=== PATIENT | female | born 1950 | race Caucasian/White ===

== ENCOUNTER → 2017-03-20 | Outpatient (CLI) | payer MEDICARE, OTHER ==
[~2017-03-20] MED LIST: METHACHOLINE KIT (J7674) INH ONE
--- NOTE | 2017-03-20 10:06 | PFTRPT ---
Tech: Cassandra STANFORD RRT Age: 66 Sex: Female Race: Height: 61.00 Inches Weight: 171.00 Lbs BSA: 1.77 Diagnosis: R05 METHACHOLINE CHALLENGE REPORT ORDERING PROVIDER: EILEEN Mccrary DATE OF SERVICE: 03/20/17 INTERPRETATION: The study was of excellent technical quality. Under protocol, methacholine was administered. Even after a maximal dose of 25 mg (188.875 CDUs ), no provocation dose was achieved. IMPRESSION: Negative methacholine challenge study. MTDD
== END ==
LOC: M CARPUL 09:01
PROVIDERS: ATTEND Nurse Practitioner Adult Health
DX: R05 Cough (principal)
CPT/HCPCS: 94070; 95070; J7674

== ENCOUNTER → 2017-07-26 | Outpatient (CLI) | payer MEDICARE | LOC: M WHC 09:04 | DX: Z01.419 Encounter for gynecological examination (general) (routine) without abnormal findings (principal); Z12.31 Encounter for screening mammogram for malignant neoplasm of breast (principal); Z85.9 Personal history of malignant neoplasm, unspecified; Z78.0 Asymptomatic menopausal state; Z12.12 Encounter for screening for malignant neoplasm of rectum | CPT/HCPCS: 77067 ==

== ENCOUNTER 2017-12-19 13:55 | Inpatient (IN) | payer MEDICARE ==
[2017-12-19] MEDS: ONDANSETRON 4MG/2ML VIAL (J2405) IV (14:53)
[2017-12-19] MEDS: MORPHINE 4 MG/ML 1ML VIAL/SYRINGE (J2270) IV ×2 (14:58→16:10)
[2017-12-19] MEDS: NS 1,000 ML IV (15:08)
[2017-12-19 16:41] LABS: HEMATOCRIT 33.5 % (36.0-47.0); HEMOGLOBIN 11.1 g/dl (12.0-15.5); MEAN CORPUSCULAR HEMOGLOBIN 31.7 pg (27.0-33.0); MEAN CORPUSCULAR HGB CONC 33.1 g/dl (32.0-36.5); MEAN CORPUSCULAR VOLUME 95.7 fl (80.0-96.0); PLATELET COUNT, AUTOMATED 322 10^3/uL (150-450); RED CELL DISTRIBUTION WIDTH 11.9 % (11.5-14.5); WHITE BLOOD COUNT 17.4 10^3/uL (4.0-10.0)
[2017-12-19 16:51] LABS: IONIZED CALCIUM 4.6 MG/DL (4.5-5.3)
[2017-12-19 17:12] LABS: ANION GAP 8 MEQ/L (8-16); BLOOD UREA NITROGEN 24 MG/DL (7-18); CALCIUM LEVEL 9.4 MG/DL (8.8-10.2); CARBON DIOXIDE LEVEL 28 MEQ/L (21-32); CHLORIDE LEVEL 103 MEQ/L (98-107); CREATININE FOR GFR 0.74 MG/DL (0.55-1.30); GLOMERULAR FILTRATION RATE > 60.0 (>45); GLUCOSE, FASTING 129 MG/DL (70-100); POTASSIUM SERUM 3.9 MEQ/L (3.5-5.1); SODIUM LEVEL 139 MEQ/L (136-145)
[2017-12-19 17:26] LABS: INR 0.99; PROTHROMBIN TIME 13.2 SECONDS (12.1-14.4)
[2017-12-19 17:27] LABS: PARTIAL THROMBOPLASTIN TIME 30.7 SECONDS (25.4-37.6)
[2017-12-19] MEDS ORDERED: GLUCAGON FOR INJ 1 MG VIAL (J1610) SC (17:45)
[2017-12-19] MEDS ORDERED: GLUCOSE 4 GM CHEW TABLET PO (17:45)
[2017-12-19] MEDS ORDERED: DEXTROSE 50% 50 ML SYRINGE IV (17:45)
[2017-12-19] MEDS ORDERED: MIDAZOLAM INJ 2 MG/2 ML VIAL (J2250) As Ordered (18:17)
[2017-12-19] MEDS ORDERED: ONDANSETRON 4MG/2ML VIAL (J2405) As Ordered ×2 (18:17→19:40)
[2017-12-19] MEDS ORDERED: PROPOFOL 200 MG/20 ML VIAL As Ordered (18:17)
[2017-12-19] MEDS ORDERED: LIDOCAINE 2% INJ 100 MG/5 ML SDV (FOR ANES.) As Ordered (18:17)
[2017-12-19] MEDS ORDERED: fentaNYL 100 MCG/2 ML INJECTION (J3010) As Ordered ×2 (18:17→18:20)
[2017-12-19] MEDS: ceFAZolin 2 GM/D5W 50 ML IV BAG (J0690 PER 500MG) As Ordered ×2 (19:15→22:45)
[2017-12-19] MEDS ORDERED: PHENYLephrine HCL 500 MCG/5 ML (100MCG/ML) SYRINGE (J2370) As Ordered (19:17)
[2017-12-19] MEDS ORDERED: VASOPRESSIN INJ 20 UNITS/ML VIAL As Ordered (19:17)
[2017-12-19] MEDS ORDERED: ePHEDrine SULFATE 25 MG/5 ML(5MG/ML) SYRINGE As Ordered (19:17)
[2017-12-19] MEDS: ceFAZolin 1GM INJ (J0690 PER 500MG) As Ordered (19:36)
[2017-12-19] MEDS ORDERED: HYDROmorphone HCL 2 MG/ML 1ML VIAL (J1170) As Ordered (19:47)
[2017-12-19 20:07] LABS: BEDSIDE GLUCOSE 160 MG/DL (80-115)
[2017-12-19] MEDS: HumaLOG INSULIN (NovoLOG) PER UNIT SC (21:00)
[2017-12-19] MEDS: CYANOCOBALAMIN 500 MCG TAB PO (21:00)
[2017-12-19] MEDS: SENOKOT S TAB PO (21:00)
[2017-12-19 22:48] LABS: BEDSIDE GLUCOSE 220 MG/DL (80-115)
[2017-12-19] MEDS: HumuLIN R (REGULAR) INSULIN (NovoLIN R) **100U/ML** PER UNIT As Ordered (22:50)
[2017-12-19 23:30] LABS: BEDSIDE GLUCOSE 170 MG/DL (80-115)
[2017-12-19] MEDS: LR 1,000 ML IV (23:45)
[2017-12-19] MEDS ORDERED: fentaNYL 100 MCG/2 ML INJECTION (J3010) IV (23:45)
[2017-12-19] MEDS ORDERED: PERCOCET 5MG/325MG TAB PO (23:45)
[2017-12-19] MEDS ORDERED: ONDANSETRON 4MG/2ML VIAL (J2405) IV ×2 (23:45)
[2017-12-19] MEDS ORDERED: METOCLOPRAMIDE INJ 10MG/2ML VIAL (J2765) IV (23:45)
[2017-12-19] MEDS ORDERED: [UNRECOGNIZED DRUG - REMARK] XX (23:45)
[2017-12-19] MEDS ORDERED: MEPERIDINE INJ 25 MG/ML VIAL (J2175) IV (23:45)
[2017-12-20 00:54] LABS: HEMATOCRIT 30.3 % (36.0-47.0)
[2017-12-20] MEDS: LR 1,000 ML IV ×2 (01:51→09:45)
[2017-12-20] MEDS: NORCO, ANEXSIA 5/325MG TABLET (HYDROcodone/ACETAMINOPHEN) PO ×4 (01:56→19:15)
[2017-12-20] MEDS: MORPHINE 4 MG/ML 1ML VIAL/SYRINGE (J2270) IV ×2 (03:24→16:17)
[2017-12-20] MEDS: ceFAZolin SOD 1 GM in D5W MINI-BAG PLUS 50 ML IV ×2 (05:24→13:04)
[2017-12-20] MEDS: LEVOTHYROXINE 150MCG TABLET (0.15MG) PO (05:24)
[2017-12-20] MEDS: LEVOTHYROXINE 25MCG TABLET (0.025MG) PO (05:24)
[2017-12-20] MEDS ORDERED: LORATADINE 10 MG TAB PO (06:00)
[2017-12-20 06:01] LABS: HEMATOCRIT 27.6 % (36.0-47.0); MEAN CORPUSCULAR HEMOGLOBIN 32.1 pg (27.0-33.0); MEAN CORPUSCULAR HGB CONC 32.6 g/dl (32.0-36.5); MEAN CORPUSCULAR VOLUME 98.6 fl (80.0-96.0); PLATELET COUNT, AUTOMATED 296 10^3/uL (150-450); WHITE BLOOD COUNT 11.3 10^3/uL (4.0-10.0)
[2017-12-20 06:31] LABS: INR 1.11; PROTHROMBIN TIME 14.5 SECONDS (12.1-14.4)
[2017-12-20 06:54] LABS: ANION GAP 12 MEQ/L (8-16); BLOOD UREA NITROGEN 24 MG/DL (7-18); CALCIUM LEVEL 7.9 MG/DL (8.8-10.2); CARBON DIOXIDE LEVEL 23 MEQ/L (21-32); CHLORIDE LEVEL 107 MEQ/L (98-107); CREATININE FOR GFR 1.18 MG/DL (0.55-1.30); GLOMERULAR FILTRATION RATE 48.3 (>45); GLUCOSE, FASTING 135 MG/DL (70-100); POTASSIUM SERUM 4.3 MEQ/L (3.5-5.1); SODIUM LEVEL 142 MEQ/L (136-145)
[2017-12-20] MEDS: HumaLOG INSULIN (NovoLOG) PER UNIT SC ×4 (08:35→21:00)
[2017-12-20] MEDS: MULTIVITAMINS/MINERALS THERAP 1 TAB PO (08:36)
[2017-12-20] MEDS: SENOKOT S TAB PO ×2 (08:36→19:54)
[2017-12-20] MEDS: FOLIC ACID 1 MG TAB PO (08:37)
[2017-12-20] MEDS: IRBESARTAN 150 MG TAB PO (08:37)
[2017-12-20] MEDS: PRAVASTATIN 20 MG TAB PO (08:38)
[2017-12-20] MEDS: hydroCHLOROthiazide 12.5 MG CAPSULE PO (08:39)
[2017-12-20] MEDS: THIAMINE 100 MG TAB PO (08:42)
[2017-12-20] MEDS ORDERED: PILL CRUSHER/CUTTER 1 EACH XX (08:45)
[2017-12-20] MEDS: FLUTICASONE PROP 0.05% NASAL SPRAY 16 GM (FLONASE) (09:59)
[2017-12-20 11:45] LABS: BEDSIDE GLUCOSE 144 MG/DL (80-115)
[2017-12-20 12:52] LABS: HEMATOCRIT 28.2 % (36.0-47.0); HEMOGLOBIN 9.4 g/dl (12.0-15.5)
[2017-12-20 16:42] LABS: BEDSIDE GLUCOSE 130 MG/DL (80-115)
[2017-12-20] MEDS: RIVAROXABAN 10 MG TAB (XARELTO) PO (17:50)
[2017-12-20 18:05] LABS: HEMATOCRIT 26.7 % (36.0-47.0); HEMOGLOBIN 8.5 g/dl (12.0-15.5)
[2017-12-20] MEDS: CYANOCOBALAMIN 500 MCG TAB PO (19:54)
[2017-12-20 21:08] LABS: BEDSIDE GLUCOSE 156 MG/DL (80-115)
[2017-12-20 23:56] LABS: HEMATOCRIT 24.5 % (36.0-47.0)
[2017-12-21 00:40] LABS: IMMEDIATE SPIN CROSSMATCH 1 2
[2017-12-21] MEDS: MORPHINE 4 MG/ML 1ML VIAL/SYRINGE (J2270) IV (00:55)
[2017-12-21] MEDS: LEVOTHYROXINE 25MCG TABLET (0.025MG) PO (05:40)
[2017-12-21] MEDS: LEVOTHYROXINE 150MCG TABLET (0.15MG) PO (05:40)
[2017-12-21 05:53] LABS: HEMATOCRIT 32.2 % (36.0-47.0); MEAN CORPUSCULAR HEMOGLOBIN 31.5 pg (27.0-33.0); MEAN CORPUSCULAR HGB CONC 33.5 g/dl (32.0-36.5); MEAN CORPUSCULAR VOLUME 93.9 fl (80.0-96.0); PLATELET COUNT, AUTOMATED 233 10^3/uL (150-450); RED BLOOD COUNT 3.43 10^6/uL (4.00-5.40); RED CELL DISTRIBUTION WIDTH 14.4 % (11.5-14.5); WHITE BLOOD COUNT 12.6 10^3/uL (4.0-10.0)
[2017-12-21 05:55] LABS: HEMOGLOBIN 10.8 g/dl (12.0-15.5)
[2017-12-21 05:57] LABS: PROTHROMBIN TIME 20.3 SECONDS (12.1-14.4)
[2017-12-21 06:04] LABS: ANION GAP 7 MEQ/L (8-16); BLOOD UREA NITROGEN 28 MG/DL (7-18); CALCIUM LEVEL 8.6 MG/DL (8.8-10.2); CARBON DIOXIDE LEVEL 27 MEQ/L (21-32); CHLORIDE LEVEL 102 MEQ/L (98-107); CREATININE FOR GFR 0.98 MG/DL (0.55-1.30); GLOMERULAR FILTRATION RATE 59.9 (>45); GLUCOSE, FASTING 157 MG/DL (70-100); POTASSIUM SERUM 4.2 MEQ/L (3.5-5.1); SODIUM LEVEL 136 MEQ/L (136-145)
[2017-12-21] MEDS ORDERED: SLF 3 ML SYR IV (08:15)
[2017-12-21] MEDS: HumaLOG INSULIN (NovoLOG) PER UNIT SC ×4 (08:44→21:00)
[2017-12-21] MEDS: MULTIVITAMINS/MINERALS THERAP 1 TAB PO (08:45)
[2017-12-21] MEDS: FLUTICASONE PROP 0.05% NASAL SPRAY 16 GM (FLONASE) (08:45)
[2017-12-21] MEDS: IRBESARTAN 150 MG TAB PO (08:47)
[2017-12-21] MEDS: FOLIC ACID 1 MG TAB PO (08:47)
[2017-12-21] MEDS: SENOKOT S TAB PO ×2 (08:48→20:23)
[2017-12-21] MEDS: PRAVASTATIN 20 MG TAB PO (08:48)
[2017-12-21] MEDS: THIAMINE 100 MG TAB PO (08:49)
[2017-12-21] MEDS: hydroCHLOROthiazide 12.5 MG CAPSULE PO (08:50)
[2017-12-21] MEDS: NORCO, ANEXSIA 5/325MG TABLET (HYDROcodone/ACETAMINOPHEN) PO ×3 (08:52→20:23)
[2017-12-21 12:13] LABS: BEDSIDE GLUCOSE 143 MG/DL (80-115)
[2017-12-21] MEDS: SLF 3 ML SYR IV ×2 (12:58→22:00)
[2017-12-21 17:16] LABS: BEDSIDE GLUCOSE 143 MG/DL (80-115)
[2017-12-21] MEDS: RIVAROXABAN 10 MG TAB (XARELTO) PO (18:20)
[2017-12-21] MEDS: CYANOCOBALAMIN 500 MCG TAB PO (20:24)
[2017-12-21 20:38] LABS: BEDSIDE GLUCOSE 143 MG/DL (80-115)
[2017-12-22] MEDS: LEVOTHYROXINE 25MCG TABLET (0.025MG) PO (05:11)
[2017-12-22] MEDS: SLF 3 ML SYR IV ×3 (05:12→22:36)
[2017-12-22] MEDS: LEVOTHYROXINE 150MCG TABLET (0.15MG) PO (05:12)
[2017-12-22] MEDS: NORCO, ANEXSIA 5/325MG TABLET (HYDROcodone/ACETAMINOPHEN) PO (05:12)
[2017-12-22 06:52] LABS: HEMATOCRIT 30.2 % (36.0-47.0); HEMOGLOBIN 10.2 g/dl (12.0-15.5); MEAN CORPUSCULAR HEMOGLOBIN 31.2 pg (27.0-33.0); MEAN CORPUSCULAR HGB CONC 33.8 g/dl (32.0-36.5); MEAN CORPUSCULAR VOLUME 92.4 fl (80.0-96.0); PLATELET COUNT, AUTOMATED 258 10^3/uL (150-450); RED BLOOD COUNT 3.27 10^6/uL (4.00-5.40); RED CELL DISTRIBUTION WIDTH 14.3 % (11.5-14.5); WHITE BLOOD COUNT 14.2 10^3/uL (4.0-10.0)
[2017-12-22 07:08] LABS: INR 1.37
[2017-12-22 07:16] LABS: ANION GAP 10 MEQ/L (8-16); BLOOD UREA NITROGEN 20 MG/DL (7-18); CALCIUM LEVEL 8.9 MG/DL (8.8-10.2); CARBON DIOXIDE LEVEL 27 MEQ/L (21-32); CHLORIDE LEVEL 99 MEQ/L (98-107); CREATININE FOR GFR 0.61 MG/DL (0.55-1.30); GLOMERULAR FILTRATION RATE > 60.0 (>45); GLUCOSE, FASTING 122 MG/DL (70-100); SODIUM LEVEL 136 MEQ/L (136-145)
[2017-12-22] MEDS: HumaLOG INSULIN (NovoLOG) PER UNIT SC ×4 (07:52→20:09)
[2017-12-22] MEDS: MULTIVITAMINS/MINERALS THERAP 1 TAB PO (07:53)
[2017-12-22] MEDS: PRAVASTATIN 20 MG TAB PO (07:53)
[2017-12-22] MEDS: hydroCHLOROthiazide 12.5 MG CAPSULE PO (07:53)
[2017-12-22] MEDS: SENOKOT S TAB PO ×2 (07:53→20:08)
[2017-12-22] MEDS: IRBESARTAN 150 MG TAB PO (07:54)
[2017-12-22] MEDS: FOLIC ACID 1 MG TAB PO (07:54)
[2017-12-22] MEDS: FLUTICASONE PROP 0.05% NASAL SPRAY 16 GM (FLONASE) (07:55)
[2017-12-22] MEDS: THIAMINE 100 MG TAB PO (07:57)
[2017-12-22 08:55] LABS: BASO % 0.2 % (0.0-1.0); EOS # 0.1 10^3/uL (0.0-0.50); IMMATURE GRANULOCYTE # 0.1 10^3/uL (0-0); IMMATURE GRANULOCYTE % 0.7 % (0-3.0); LYMPH # 1.8 10^3/uL (1.5-4.5); LYMPH % 12.6 % (24.0-44.0); MONO # 1.3 10^3/uL (0.0-0.8); NEUTROPHILS # 10.9 10^3/uL (1.8-7.7); NEUTROPHILS % 76.5 % (36.0-66.0)
[2017-12-22 11:20] LABS: BEDSIDE GLUCOSE 133 MG/DL (80-115)
[2017-12-22 11:27] LABS: APPEARANCE, URINE HAZY (CLEAR); BACTERIA, URINE AUTO NEGATIVE (NEGATIVE); BILIRUBIN, URINE AUTO NEGATIVE (NEGATIVE); BLOOD, URINE BLOOD NEGATIVE (NEGATIVE); COLOR, URINE YELLOW (YELLOW); GLUCOSE, URINE (UA) AUTO NEGATIVE (NEGATIVE); KETONE, URINE AUTO 1+ mg/dL (NEGATIVE); LEUKOCYTE ESTERASE, URINE AUTO NEGATIVE (NEGATIVE); NITRITE, URINE AUTO NEGATIVE (NEGATIVE); PROTEIN, URINE AUTO NEGATIVE (NEGATIVE); RBC, URINE AUTO 2 /HPF (0-3); SPECIFIC GRAVITY URINE AUTO 1.013 (1.002-1.035); SQUAMOUS EPITHELIAL CELL UR AU 2 /HPF (0-6); UROBILINOGEN, URINE AUTO 0.2 mg/dL (0.0-2.0); WBC, URINE AUTO 2 /HPF (0-3)
[2017-12-22] MEDS: ACETAMINOPHEN TAB 650MG DOSE (2X325MG) PO ×3 (11:55→22:36)
[2017-12-22 16:50] LABS: BEDSIDE GLUCOSE 118 MG/DL (80-115)
[2017-12-22] MEDS: RIVAROXABAN 10 MG TAB (XARELTO) PO (17:44)
[2017-12-22 20:05] LABS: BEDSIDE GLUCOSE 105 MG/DL (80-115)
[2017-12-22] MEDS: CYANOCOBALAMIN 500 MCG TAB PO (20:08)
[2017-12-23] MEDS: LEVOTHYROXINE 150MCG TABLET (0.15MG) PO (05:13)
[2017-12-23] MEDS: LEVOTHYROXINE 25MCG TABLET (0.025MG) PO (05:13)
[2017-12-23] MEDS: SLF 3 ML SYR IV ×3 (05:14→22:00)
[2017-12-23] MEDS: ACETAMINOPHEN TAB 650MG DOSE (2X325MG) PO ×4 (05:16→19:56)
[2017-12-23 06:19] LABS: HEMATOCRIT 32.3 % (36.0-47.0); HEMOGLOBIN 10.9 g/dl (12.0-15.5); MEAN CORPUSCULAR HEMOGLOBIN 31.1 pg (27.0-33.0); MEAN CORPUSCULAR HGB CONC 33.7 g/dl (32.0-36.5); MEAN CORPUSCULAR VOLUME 92.3 fl (80.0-96.0); PLATELET COUNT, AUTOMATED 274 10^3/uL (150-450); RED CELL DISTRIBUTION WIDTH 13.6 % (11.5-14.5); WHITE BLOOD COUNT 13.5 10^3/uL (4.0-10.0)
[2017-12-23 06:29] LABS: INR 1.27; PROTHROMBIN TIME 16.1 SECONDS (12.1-14.4)
[2017-12-23 06:45] LABS: ANION GAP 13 MEQ/L (8-16); BLOOD UREA NITROGEN 23 MG/DL (7-18); CALCIUM LEVEL 9.2 MG/DL (8.8-10.2); CARBON DIOXIDE LEVEL 27 MEQ/L (21-32); CHLORIDE LEVEL 96 MEQ/L (98-107); CREATININE FOR GFR 0.56 MG/DL (0.55-1.30); GLOMERULAR FILTRATION RATE > 60.0 (>45); GLUCOSE, FASTING 93 MG/DL (70-100); POTASSIUM SERUM 4.2 MEQ/L (3.5-5.1); SODIUM LEVEL 136 MEQ/L (136-145)
[2017-12-23] MEDS: HumaLOG INSULIN (NovoLOG) PER UNIT SC ×4 (07:30→21:00)
[2017-12-23] MEDS: FOLIC ACID 1 MG TAB PO (09:01)
[2017-12-23] MEDS: MULTIVITAMINS/MINERALS THERAP 1 TAB PO (09:01)
[2017-12-23] MEDS: THIAMINE 100 MG TAB PO (09:01)
[2017-12-23] MEDS: IRBESARTAN 150 MG TAB PO (09:02)
[2017-12-23] MEDS: PRAVASTATIN 20 MG TAB PO (09:02)
[2017-12-23] MEDS: FLUTICASONE PROP 0.05% NASAL SPRAY 16 GM (FLONASE) (09:02)
[2017-12-23] MEDS: SENOKOT S TAB PO ×2 (09:02→19:57)
[2017-12-23] MEDS: hydroCHLOROthiazide 12.5 MG CAPSULE PO (09:02)
[2017-12-23 17:02] LABS: BEDSIDE GLUCOSE 140 MG/DL (80-115)
[2017-12-23 17:02] LABS: BEDSIDE GLUCOSE 136 MG/DL (80-115)
[2017-12-23] MEDS: RIVAROXABAN 10 MG TAB (XARELTO) PO (17:15)
[2017-12-23] MEDS: CYANOCOBALAMIN 500 MCG TAB PO (19:57)
[2017-12-23 20:07] LABS: BEDSIDE GLUCOSE 145 MG/DL (80-115)
[2017-12-24] MEDS: ACETAMINOPHEN TAB 650MG DOSE (2X325MG) PO ×4 (02:40→20:41)
[2017-12-24] MEDS: LEVOTHYROXINE 150MCG TABLET (0.15MG) PO (05:23)
[2017-12-24] MEDS: SLF 3 ML SYR IV ×3 (05:23→20:41)
[2017-12-24] MEDS: LEVOTHYROXINE 25MCG TABLET (0.025MG) PO (05:23)
[2017-12-24 07:32] LABS: HEMATOCRIT 31.5 % (36.0-47.0); HEMOGLOBIN 10.8 g/dl (12.0-15.5); MEAN CORPUSCULAR HEMOGLOBIN 31.9 pg (27.0-33.0); MEAN CORPUSCULAR HGB CONC 34.3 g/dl (32.0-36.5); MEAN CORPUSCULAR VOLUME 92.9 fl (80.0-96.0); PLATELET COUNT, AUTOMATED 333 10^3/uL (150-450); RED BLOOD COUNT 3.39 10^6/uL (4.00-5.40); RED CELL DISTRIBUTION WIDTH 13.5 % (11.5-14.5); WHITE BLOOD COUNT 11.6 10^3/uL (4.0-10.0)
[2017-12-24 08:05] LABS: ANION GAP 14 MEQ/L (8-16); BLOOD UREA NITROGEN 23 MG/DL (7-18); CARBON DIOXIDE LEVEL 28 MEQ/L (21-32); CHLORIDE LEVEL 97 MEQ/L (98-107); CREATININE FOR GFR 0.47 MG/DL (0.55-1.30); GLOMERULAR FILTRATION RATE > 60.0 (>45); GLUCOSE, FASTING 116 MG/DL (70-100); SODIUM LEVEL 139 MEQ/L (136-145)
[2017-12-24] MEDS: THIAMINE 100 MG TAB PO (09:04)
[2017-12-24] MEDS: FOLIC ACID 1 MG TAB PO (09:04)
[2017-12-24] MEDS: SENOKOT S TAB PO ×2 (09:04→20:41)
[2017-12-24] MEDS: MULTIVITAMINS/MINERALS THERAP 1 TAB PO (09:04)
[2017-12-24] MEDS: PRAVASTATIN 20 MG TAB PO (09:04)
[2017-12-24] MEDS: hydroCHLOROthiazide 12.5 MG CAPSULE PO (09:05)
[2017-12-24] MEDS: IRBESARTAN 150 MG TAB PO (09:05)
[2017-12-24] MEDS: FLUTICASONE PROP 0.05% NASAL SPRAY 16 GM (FLONASE) (09:05)
[2017-12-24] MEDS: HumaLOG INSULIN (NovoLOG) PER UNIT SC ×4 (09:06→21:00)
[2017-12-24 11:34] LABS: BEDSIDE GLUCOSE 119 MG/DL (80-115)
[2017-12-24] MEDS: CYCLOBENZAPRINE 10 MG TAB PO (14:53)
[2017-12-24 18:08] LABS: BEDSIDE GLUCOSE 131 MG/DL (80-115)
[2017-12-24] MEDS: RIVAROXABAN 10 MG TAB (XARELTO) PO (18:10)
[2017-12-24] MEDS ORDERED: ISOVUE-370 76% 100ML VIAL (Q9967) As Ordered (18:21)
[2017-12-24] MEDS: CYANOCOBALAMIN 500 MCG TAB PO (20:40)
[2017-12-24] MEDS ORDERED: BACLOFEN 10 MG TAB PO (21:00)
[2017-12-24 21:23] LABS: BEDSIDE GLUCOSE 150 MG/DL (80-115)
[2017-12-25] MEDS: ACETAMINOPHEN TAB 650MG DOSE (2X325MG) PO ×2 (02:44→09:36)
[2017-12-25] MEDS: LEVOTHYROXINE 150MCG TABLET (0.15MG) PO (05:52)
[2017-12-25] MEDS: SLF 3 ML SYR IV (05:52)
[2017-12-25] MEDS: LEVOTHYROXINE 25MCG TABLET (0.025MG) PO (05:52)
[2017-12-25 06:41] LABS: HEMATOCRIT 33.4 % (36.0-47.0); HEMOGLOBIN 11.2 g/dl (12.0-15.5); MEAN CORPUSCULAR HEMOGLOBIN 31.1 pg (27.0-33.0); MEAN CORPUSCULAR HGB CONC 33.5 g/dl (32.0-36.5); MEAN CORPUSCULAR VOLUME 92.8 fl (80.0-96.0); PLATELET COUNT, AUTOMATED 388 10^3/uL (150-450); RED CELL DISTRIBUTION WIDTH 13.3 % (11.5-14.5); WHITE BLOOD COUNT 12.3 10^3/uL (4.0-10.0)
[2017-12-25 06:56] LABS: BEDSIDE GLUCOSE 124 MG/DL (80-115)
[2017-12-25 07:02] LABS: ANION GAP 11 MEQ/L (8-16); BLOOD UREA NITROGEN 23 MG/DL (7-18); CALCIUM LEVEL 8.9 MG/DL (8.8-10.2); CARBON DIOXIDE LEVEL 29 MEQ/L (21-32); CHLORIDE LEVEL 95 MEQ/L (98-107); CREATININE FOR GFR 0.64 MG/DL (0.55-1.30); GLOMERULAR FILTRATION RATE > 60.0 (>45); GLUCOSE, FASTING 111 MG/DL (70-100); POTASSIUM SERUM 3.6 MEQ/L (3.5-5.1); SODIUM LEVEL 135 MEQ/L (136-145)
[2017-12-25] MEDS: SENOKOT S TAB PO (08:17)
[2017-12-25] MEDS: FOLIC ACID 1 MG TAB PO (08:17)
[2017-12-25] MEDS: MULTIVITAMINS/MINERALS THERAP 1 TAB PO (08:17)
[2017-12-25] MEDS: hydroCHLOROthiazide 12.5 MG CAPSULE PO (08:17)
[2017-12-25] MEDS: PRAVASTATIN 20 MG TAB PO (08:17)
[2017-12-25] MEDS: IRBESARTAN 150 MG TAB PO (08:17)
[2017-12-25] MEDS: FLUTICASONE PROP 0.05% NASAL SPRAY 16 GM (FLONASE) (08:18)
[2017-12-25] MEDS: HumaLOG INSULIN (NovoLOG) PER UNIT SC (08:18)
[2017-12-25] MEDS: THIAMINE 100 MG TAB PO (08:18)
[2017-12-25] MEDS ORDERED: MAGNESIUM CITRATE 300 ML BTL PO (09:15)
[2017-12-25] MEDS: FLEET ENEMA PR (09:59)
== END 2017-12-25 12:05 | DRG 481 ==
LOC: M PCU 12-20 00:52 → M MS5PR 12-21 16:01 → M ED 13:55 → M ED INP 17:28
PROC: 0QSB04Z Reposition Right Lower Femur with Internal Fixation Device, Open Approach (ICD-10-PCS; principal; 2017-12-19 17:00)
PROC: 30233N1 Transfusion of Nonautologous Red Blood Cells into Peripheral Vein, Percutaneous Approach (ICD-10-PCS; 2017-12-19 18:39)
DX: S72.24XA Nondisplaced subtrochanteric fracture of right femur, initial encounter for closed fracture (principal); J98.11 Atelectasis; E11.9 Type 2 diabetes mellitus without complications; F10.10 Alcohol abuse, uncomplicated; J30.9 Allergic rhinitis, unspecified; E03.9 Hypothyroidism, unspecified; E78.5 Hyperlipidemia, unspecified; I10 Essential (primary) hypertension; D72.829 Elevated white blood cell count, unspecified; W18.30XA Fall on same level, unspecified, initial encounter; Y92.009 Unspecified place in unspecified non-institutional (private) residence as the place of occurrence of the external cause; Z79.899 Other long term (current) drug therapy

== ENCOUNTER → 2018-01-01 | Outpatient (REF) ==
[2018-01-01 09:55] LABS: HEMOGLOBIN 11.3 g/dl (12.0-15.5); MEAN CORPUSCULAR HEMOGLOBIN 31.5 pg (27.0-33.0); MEAN CORPUSCULAR HGB CONC 33.2 g/dl (32.0-36.5); MEAN CORPUSCULAR VOLUME 94.7 fl (80.0-96.0); PLATELET COUNT, AUTOMATED 688 10^3/uL (150-450); RED BLOOD COUNT 3.59 10^6/uL (4.00-5.40); RED CELL DISTRIBUTION WIDTH 14.3 % (11.5-14.5); WHITE BLOOD COUNT 11.7 10^3/uL (4.0-10.0)
[2018-01-01 10:36] LABS: ANION GAP 11 MEQ/L (8-16); BLOOD UREA NITROGEN 17 MG/DL (7-18); CALCIUM LEVEL 9.5 MG/DL (8.8-10.2); CARBON DIOXIDE LEVEL 29 MEQ/L (21-32); CHLORIDE LEVEL 96 MEQ/L (98-107); CREATININE FOR GFR 0.72 MG/DL (0.55-1.30); GLOMERULAR FILTRATION RATE > 60.0 (>45); GLUCOSE, FASTING 109 MG/DL (70-100); POTASSIUM SERUM 4.5 MEQ/L (3.5-5.1); SODIUM LEVEL 136 MEQ/L (136-145)
== END ==
DX: I10 Essential (primary) hypertension (principal)

== ENCOUNTER → 2018-01-09 | Outpatient (REF) ==
[2018-01-09 10:25] LABS: HEMATOCRIT 37.2 % (36.0-47.0); HEMOGLOBIN 12.3 g/dl (12.0-15.5); MEAN CORPUSCULAR HEMOGLOBIN 31.9 pg (27.0-33.0); MEAN CORPUSCULAR HGB CONC 33.1 g/dl (32.0-36.5); MEAN CORPUSCULAR VOLUME 96.4 fl (80.0-96.0); PLATELET COUNT, AUTOMATED 622 10^3/uL (150-450); RED BLOOD COUNT 3.86 10^6/uL (4.00-5.40); WHITE BLOOD COUNT 8.6 10^3/uL (4.0-10.0)
[2018-01-09 10:56] LABS: ANION GAP 11 MEQ/L (8-16); BLOOD UREA NITROGEN 16 MG/DL (7-18); CALCIUM LEVEL 9.9 MG/DL (8.8-10.2); CARBON DIOXIDE LEVEL 27 MEQ/L (21-32); CHLORIDE LEVEL 96 MEQ/L (98-107); CREATININE FOR GFR 0.72 MG/DL (0.55-1.30); GLOMERULAR FILTRATION RATE > 60.0 (>45); GLUCOSE, FASTING 198 MG/DL (70-100); POTASSIUM SERUM 4.1 MEQ/L (3.5-5.1); SODIUM LEVEL 134 MEQ/L (136-145)
== END ==
DX: I10 Essential (primary) hypertension (principal)

== ENCOUNTER → 2018-08-09 | Outpatient (CLI) | payer MEDICARE ==
[~2018-08-09] MED LIST changes: +BACL10TA2; +BIOT10TA2 PO; +BIOT1CAP2 PO; +CLAR10CA3 PO; +CYCL10TA PO; +Docusate Sod/Senna PO; +FLUTISP; +FOLI1TAB11 PO; +IBUP-359 PO; +IRBE150T14 PO; +IRBESARTAN-HCTZ; +LORA10TA3 PO; +METF500T13; -METHACHOLINE KIT (J7674) INH ONE; +PERC5TAB12 PO; +PRAV40TA2 PO; +SYNT175T2 PO; +THIA100TA PO; +VITA10002 PO; +VITA100T51 PO; +VITMTA PO; +XARE10TA PO
--- NOTE | 2018-08-09 13:33 | REPMRS ---
Patient History The patient states she had a clinical breast exam in 08/2018. Patient is postmenopausal and has history of other cancer at age 65. No known family history of cancer. Benign excisional biopsy of the left breast, 1997. No Hormone Replacement Therapy 3D TOMOSYNTHESIS WAS PERFORMED. Digital Woman Screen Mammo: August 09, 2018 - Exam #: [id number] Bilateral CC and MLO view(s) were taken. Technologist: Chela Marcelo, Technologist Prior study comparison: July 26, 2017, digital woman screen mammo performed at [facility]. June 08, 2015, right breast diagnostic unilateral mammo, performed at [facility]. FINDINGS: There are scattered fibroglandular densities. There has been no change in the appearance of the mammogram from the prior studies. There is a mild amount of residual fibroglandular tissue which is fairly symmetric. There is no interval development of dominant mass, architectural distortion, or clustered microcalcification suggestive of malignancy. Assessment: BI-RADS/ACR category 1 mammogram. Negative Mammogram. Recommendation Routine screening mammogram in 1 year (for women over age 40). This mammogram was interpreted with the aid of an FDA-approved computer-aided dectection system. Electronically Signed By: Albert Mcdonald MD 08/09/18 [id number]
--- NOTE | 2018-08-13 13:52 | DEXA ---
AP SPINE L1 - L4 1.580 3.1 4.8 LT FEMUR TOTAL 0.830 -1.4 0.1 LT NECK 0.729 -2.2 -0.5 RT FEMUR TOTAL Right hip fracture with rubs. RT NECK Right hip fracture with rubs. TOTAL BODY TOTAL OTHER COMMENTS: Normal bone densitometry of the spine. There is low bone density of the left hip. The increased density of the spine does not represent a significant change. The decreased density of the left hip does represent a significant change. The density of the spine has increased 10.7% since the initial exam on 10/04/2001. The spine density has increased 1.9% since the most recent exam on 05/15/2013. The density of the left hip has decreased 15.7% since the initial exam on 10/04/2001. The density of the left hip has decreased 7.6% since the most recent exam on 05/15/2013. Right hip replacement. FOLLOW-UP: Recommendation for the next bone density exam: 2 years. MIKE
== END ==
LOC: M WHC 10:55
PROVIDERS: ATTEND Nurse Practitioner Family
DX: Z12.31 Encounter for screening mammogram for malignant neoplasm of breast (principal); M85.80 Other specified disorders of bone density and structure, unspecified site; Z78.0 Asymptomatic menopausal state; Z85.89 Personal history of malignant neoplasm of other organs and systems; Z86.018 Personal history of other benign neoplasm
CPT/HCPCS: 77063; 77067; 77080; G0463

== ENCOUNTER → 2019-11-06 | Outpatient (CLI) | payer MEDICARE ==
[~2019-11-06] MED LIST changes: +CYAN100049 PO; +CYCL-707 PO; -CYCL10TA PO; -VITA10002 PO
--- NOTE | 2019-11-30 09:44 | REPMRS ---
Patient History The patient states she had a clinical breast exam in October 2019. Patient is postmenopausal and has history of other cancer at age 65. No known family history of cancer. Benign excisional biopsy of the left breast, 1997. No Hormone Replacement Therapy Digital Woman Screen Mammo: November 06, 2019 - Exam #: [id number] Bilateral CC and MLO view(s) were taken. Technologist: Tia Paz, Technologist Prior study comparison: August 09, 2018, bilateral digital woman screen mammo performed at [facility]. July 26, 2017, digital woman screen mammo performed at [facility]. June 03, 2015, digital woman screen mammo performed at [facility]. FINDINGS: There are scattered fibroglandular densities. There has been no change in the appearance of the mammogram from the prior studies. There is a mild amount of scattered fibroglandular density which is fairly symmetric. There is no interval development of dominant mass, architectural distortion, or grouped microcalcification suggestive of malignancy. 3-D tomosynthesis shows no additional findings. Report was delayed due to a protracted network disruption experienced by this facility. Assessment: BI-RADS/ACR category 1 mammogram. Negative Mammogram. Recommendation Routine screening mammogram of both breasts in 1 year (for women over age 40). This patient's Lifetime Breast Cancer Risk is estimated at 3.4 %. This mammogram was interpreted with the aid of an FDA-approved computer-aided dectection system. Electronically Signed By: Reid Gaston MD 11/30/19 0943
== END ==
LOC: M WHC 14:34
PROVIDERS: ATTEND Nurse Practitioner Women's Health
DX: Z01.419 Encounter for gynecological examination (general) (routine) without abnormal findings (principal); Z12.31 Encounter for screening mammogram for malignant neoplasm of breast; Z78.0 Asymptomatic menopausal state; Z85.89 Personal history of malignant neoplasm of other organs and systems; Z86.018 Personal history of other benign neoplasm
CPT/HCPCS: 77063; 77067; G0101

== ENCOUNTER → 2020-11-11 | Outpatient (CLI) | payer MEDICARE ==
--- NOTE | 2020-11-11 13:22 | REP ---
INDICATION: FABI SCR MAMMO. COMPARISON: 11/06/2019 as well as other prior exams. TECHNIQUE: MLO and CC views of bilateral breasts performed with tomosynthesis. FINDINGS: Mild scattered fibroglandular tissue is present bilaterally. There is a smoothly marginated 3 mm nodular density in the medial left breast, not visualized on the MLO view. Otherwise no new mass or architectural distortion is seen. No clustered microcalcifications are seen. The Volpara volumetric breast density pattern is B. IMPRESSION: BIRADS/ACR category 0, incomplete. There is new smoothly marginated 3 mm nodular density medial left breast somewhat inferiorly. This is not seen in the MLO projection. Recommend spot compression views, left mL tomogram images and ultrasound to further evaluate. This is of doubtful significance. This patient's Tyrer-Cuzick lifetime breast cancer risk assessment score is 3.2%. This mammogram was interpreted with the aid of an FDA-approved computer-aided detection system. The patient states she had a clinical breast exam in November 2020. The patient letter being requested is M0. RECOMMENDATION: Recommend spot compression views and ultrasound left breast. <Electronically signed by Albert Mcdonald > 11/11/20 [id number]
== END ==
LOC: M WHC 10:55
PROVIDERS: ATTEND Nurse Practitioner Women's Health
DX: Z01.419 Encounter for gynecological examination (general) (routine) without abnormal findings (principal); Z12.31 Encounter for screening mammogram for malignant neoplasm of breast; N63.20 Unspecified lump in the left breast, unspecified quadrant
CPT/HCPCS: 77063; 77067; G0101

== ENCOUNTER → 2020-12-09 | Outpatient (CLI) | payer MEDICARE ==
--- NOTE | 2020-12-09 12:37 | REP ---
INDICATION: LEFT BREAST ADDVIEWS. COMPARISON: Comparison mammography November 11, 2020, November 06, 2019, and August 09, 2018. TECHNIQUE: Magnified focal spot-compression CC, true mL, and MLO projection images were obtained. 3D tomography is deployed in the mediolateral projection and rolled craniocaudal views are included. Targeted left breast sonography of the medial left breast is performed. This mammogram was interpreted with the aid of an FDA-approved computer-aided detection system. FINDINGS: Screening study showed a 3 mm divya density in the medial aspect of the left breast on the craniocaudal view. Today's diagnostic craniocaudal images confirm this well-circumscribed 3 mm opacity in the medial left breast. This could not be visualized however on the orthogonal plane images or on mediolateral 3D tomography. Rolled views confirm it is is in approximately the central breast position. No other significant mammographic finding. The Volpara volumetric breast density pattern is b. Targeted ultrasound: Targeted left breast sonography is performed in the medial aspect. At the 10 o'clock position, 3 cm from the nipple, there is a 0.3 x 0.3 x 0.2 cm cyst. This is felt to account for the mammographic opacity. Has a benign appearance and a low shear wave elastography number, 24.8 K PA. IMPRESSION: BIRADS/ACR category 2 benign left breast mammographic and sonographic findings. 3 mm cyst confirmed. This patient's Tyrer-Cuzick lifetime breast cancer risk assessment score is 3.2%. RECOMMENDATION: Repeat screening mammography recommended 1 year (for women over 40). The patient letter being requested is M1. <Electronically signed by Reid Gaston > 12/09/20 [id number]
== END ==
LOC: M WHC 11:01
PROVIDERS: ATTEND Nurse Practitioner Women's Health
DX: R92.2 Inconclusive mammogram (principal); N63.22 Unspecified lump in the left breast, upper inner quadrant
CPT/HCPCS: 76642; 77065; G0279

== ENCOUNTER → 2021-02-03 | Outpatient (CLI) | payer MEDICARE ==
--- NOTE | 2021-02-03 14:43 | REP ---
INDICATION: SHORTNESS OF BREATH AND COUGH. COMPARISON: Multiple the latest 12/09/2019 TECHNIQUE: PA and lateral FINDINGS: The cardiomediastinal silhouette is unchanged. The heart is not enlarged. Minimal right basilar opacities may have developed since the last exam. The pleural angles remain sharp. Lung dunaway are otherwise clear and stable. The osseous structures are stable and intact. IMPRESSION: Possible new but minimal right basilar opacities. Subsegmental atelectatic change is suspected. A developing pneumonia cannot be completely ruled out. Follow-up is suggested. <Electronically signed by Agapito Feliciano > 02/03/21 [id number]
== END ==
LOC: M WUC 13:53
PROVIDERS: ATTEND Physician Assistant
DX: R06.02 Shortness of breath (principal); R05.3 Chronic cough

== ENCOUNTER → 2021-09-29 | Outpatient (REF) | payer MEDICARE ==
[2021-09-29 16:42] LABS: CREATININE FOR GFR 0.97 MG/DL (0.55-1.30); GLOMERULAR FILTRATION RATE 59.9 (>39)
== END ==
LOC: M WUC 15:43
PROVIDERS: ATTEND Psychiatry & Neurology Neurology
DX: I10 Essential (primary) hypertension (principal)

== ENCOUNTER → 2021-12-15 | Outpatient (CLI) | payer MEDICARE | LOC: M WUC 14:46 | PROVIDERS: ATTEND Physician Assistant | DX: R05.3 Chronic cough (principal); R06.02 Shortness of breath; J90 Pleural effusion, not elsewhere classified ==

== ENCOUNTER → 2022-02-07 | Outpatient (CLI) | payer MEDICARE ==
[2022-02-07 13:24] LABS: ALBUMIN 3.7 GM/DL (3.2-5.2); ALT/SGPT 24 U/L (12-78); BILIRUBIN,TOTAL 0.4 MG/DL (0.2-1.0); BLOOD UREA NITROGEN 32 MG/DL (7-18); CALCIUM LEVEL 10.3 MG/DL (8.8-10.2); CARBON DIOXIDE LEVEL 32 MEQ/L (21-32); CHLORIDE LEVEL 101 MEQ/L (98-107); CHOLESTEROL LEVEL 173 MG/DL (<200); CHOLESTEROL RISK RATIO 1.901 (<5); CREATININE FOR GFR 0.93 MG/DL (0.55-1.30); GLOMERULAR FILTRATION RATE > 60.0 (>39); GLUCOSE, FASTING 130 MG/DL (70-100); HDL CHOLESTEROL 91 MG/DL (>40); LDL CHOLESTEROL 62 MG/DL (<100); NON-HDL-C 82 MG/DL; POTASSIUM SERUM 4.7 MEQ/L (3.5-5.1); SODIUM LEVEL 139 MEQ/L (136-145); TOTAL PROTEIN 7.2 GM/DL (6.4-8.2); TRIGLYCERIDES LEVEL 102 MG/DL (<150)
== END ==
LOC: M WUC 09:44
PROVIDERS: ATTEND Physician Assistant
DX: E78.5 Hyperlipidemia, unspecified (principal); E11.40 Type 2 diabetes mellitus with diabetic neuropathy, unspecified; I10 Essential (primary) hypertension

== ENCOUNTER → 2022-03-08 | Outpatient (CLI) | payer MEDICARE | LOC: M WHC 11:45 | PROVIDERS: ATTEND Nurse Practitioner Family | DX: Z12.31 Encounter for screening mammogram for malignant neoplasm of breast (principal) ==

== ENCOUNTER → 2022-05-15 | Outpatient (CLI) | payer MEDICARE ==
[2022-05-15 13:41] LABS: HEMOGLOBIN A1c 6.6 % (4.0-6.0)
== END ==
LOC: M WUC 10:38
PROVIDERS: ATTEND Physician Assistant
DX: E11.40 Type 2 diabetes mellitus with diabetic neuropathy, unspecified (principal)

== ENCOUNTER → 2022-05-31 | Outpatient (CLI) | payer MEDICARE | LOC: M PLAIMG 13:39 | PROVIDERS: ATTEND Physician Assistant | DX: M51.36 Other intervertebral disc degeneration, lumbar region (principal) ==

== ENCOUNTER → 2022-08-08 | Outpatient (CLI) | payer MEDICARE ==
[~2022-08-08] MED LIST changes: +FLUT50SP17; -FLUTISP
[2022-08-08 17:05] LABS: BASO % 0.4 % (0.0-1.0); EOS # 0.3 10^3/uL (0.0-0.5); HEMATOCRIT 38.3 % (36.0-47.0); HEMOGLOBIN 11.8 g/dl (12.0-15.5); LYMPH # 1.8 10^3/uL (1.5-5.0); LYMPH % 18.8 % (24.0-44.0); MEAN CORPUSCULAR HEMOGLOBIN 29.6 pg (27.0-33.0); MEAN CORPUSCULAR HGB CONC 30.8 g/dl (32.0-36.5); MEAN CORPUSCULAR VOLUME 96.2 fl (80.0-96.0); MONO # 0.6 10^3/uL (0.0-0.8); MONO % 6.5 % (2.0-8.0); NEUTROPHILS # 6.7 10^3/uL (1.5-8.5); NEUTROPHILS % 70.6 % (36.0-66.0); PLATELET COUNT, AUTOMATED 496 10^3/uL (150-450); RED BLOOD COUNT 3.98 10^6/uL (4.00-5.40); WHITE BLOOD COUNT 9.5 10^3/uL (4.0-10.0)
[2022-08-08 17:23] LABS: ALBUMIN 3.6 G/DL (3.2-5.2); ALKALINE PHOSPHATASE 68 U/L (46-116); ALT/SGPT < 9 U/L (7.0-40); AST/SGOT 10 U/L (<34); BILIRUBIN,TOTAL 0.4 MG/DL (0.3-1.2); BLOOD UREA NITROGEN 25 MG/DL (9-23); CARBON DIOXIDE LEVEL 29 MMOL/L (20-31); CHLORIDE LEVEL 101 MMOL/L (98-107); CREATININE FOR GFR 0.76 MG/DL (0.55-1.30); GLOMERULAR FILTRATION RATE > 60.0 (>39); GLUCOSE, FASTING 112 MG/DL (74-106); POTASSIUM SERUM 4.2 MMOL/L (3.5-5.1); SODIUM LEVEL 139 MMOL/L (136-145); TOTAL PROTEIN 7.2 G/DL (5.7-8.2)
[2022-08-08 17:49] LABS: HEMOGLOBIN A1c 6.7 % (4.0-6.0)
== END ==
LOC: M WUC 11:07
PROVIDERS: ATTEND Physician Assistant
DX: E11.40 Type 2 diabetes mellitus with diabetic neuropathy, unspecified (principal); I10 Essential (primary) hypertension

== ENCOUNTER → 2022-08-08 | Outpatient (CLI) | payer MEDICARE ==
[2022-08-08 17:27] LABS: BLOOD UREA NITROGEN 25 MG/DL (9-23); CREATININE FOR GFR 0.76 MG/DL (0.55-1.30); GLOMERULAR FILTRATION RATE > 60.0 (>39)
== END ==
LOC: M WUC 11:11
DX: I10 Essential (primary) hypertension (principal)

== ENCOUNTER → 2023-03-14 | Outpatient (CLI) | payer MEDICARE ==
[~2023-03-14] MED LIST changes: -FLUT50SP17; +FLUTISP
== END ==
LOC: M WHC 14:11
PROVIDERS: ATTEND Nurse Practitioner Family
DX: Z12.31 Encounter for screening mammogram for malignant neoplasm of breast (principal)

== ENCOUNTER 2023-07-05 11:23 | Day surgery (SDC) | payer MEDICARE ==
[~2023-07-05] VITALS: Ht 157.5 cm; Wt 79.4 kg
[~2023-07-05 11:23] MED LIST changes: +BREO1INH3 INH; +CULT10CA4 PO; +ECOT81TA5 PO; +FURO20TA2 PO; +GABA-284 PO; +IBAN150T6 PO; +JANU100T PO; +KP F1200 PO; +LEVE250T5 PO
[2023-07-05] MEDS ORDERED: propofoL 200 MG/20 ML VIAL As Ordered ONE (12:33)
[2023-07-05] MEDS ORDERED: LIDOCAINE 2% 100MG/5ML SDV (FOR ANES.) As Ordered ONE (12:34)
[2023-07-05 12:58] VITALS: TEMP 97
[2023-07-05 13:14] VITALS: BP 146/64; O2SAT 96
== END 2023-07-05 13:38 | disposition home or self-care (01) ==
LOC: M OPP 11:23
PROVIDERS: ATTEND Surgery
DX: D12.6 Benign neoplasm of colon, unspecified (principal); K64.2 Third degree hemorrhoids; K57.30 Diverticulosis of large intestine without perforation or abscess without bleeding; R19.5 Other fecal abnormalities; Z87.891 Personal history of nicotine dependence; I10 Essential (primary) hypertension; E11.9 Type 2 diabetes mellitus without complications; E03.9 Hypothyroidism, unspecified; Z79.2 Long term (current) use of antibiotics; Z79.52 Long term (current) use of systemic steroids; Z79.83 Long term (current) use of bisphosphonates; Z79.890 Hormone replacement therapy; Z79.891 Long term (current) use of opiate analgesic; Z79.899 Other long term (current) drug therapy

== ENCOUNTER 2023-07-07 16:03 | Inpatient (IN) | payer MEDICARE ==
[~2023-07-07] VITALS: Ht 157.5 cm; Wt 83.3 kg
[2023-07-07] MEDS: NS 1,000 ML IV ONE (16:55)
[2023-07-07 17:06] LABS: BASO % 0.3 % (0.0-1.0); EOS % 3.5 % (0.0-3.0); HEMATOCRIT 33.8 % (36.0-47.0); LYMPH % 13.4 % (24.0-44.0); MEAN CORPUSCULAR HEMOGLOBIN 31.5 pg (27.0-33.0); MEAN CORPUSCULAR HGB CONC 32.5 g/dl (32.0-36.5); MEAN CORPUSCULAR VOLUME 96.8 fl (80.0-96.0); MONO % 7.6 % (2.0-8.0); NEUTROPHILS % 74.7 % (36.0-66.0); PLATELET COUNT, AUTOMATED 287 10^3/uL (150-450); RED BLOOD COUNT 3.49 10^6/uL (4.00-5.40); WHITE BLOOD COUNT 15.2 10^3/uL (4.0-10.0)
[2023-07-07 17:07] LABS: EOS # 0.5 10^3/uL (0.0-0.5); MONO # 1.2 10^3/uL (0.0-0.8); NEUTROPHILS # 11.4 10^3/uL (1.5-8.5)
[2023-07-07 17:29] LABS: LIPASE 31 U/L (12-53)
[2023-07-07 17:31] LABS: ALBUMIN 3.2 G/DL (3.2-5.2); ALKALINE PHOSPHATASE 76 U/L (46-116); ALT/SGPT 15 U/L (7.0-40); AST/SGOT 11 U/L (<34); BILIRUBIN,DIRECT < 0.1 MG/DL (<0.4); BILIRUBIN,TOTAL 0.2 MG/DL (0.3-1.2); BLOOD UREA NITROGEN 57 MG/DL (9-23); CALCIUM LEVEL 8.8 MG/DL (8.3-10.6); CARBON DIOXIDE LEVEL 23 MMOL/L (20-31); CHLORIDE LEVEL 94 MMOL/L (98-107); CREATININE FOR GFR 4.61 MG/DL (0.55-1.30); GLOMERULAR FILTRATION RATE 9.9 (>39); GLUCOSE, FASTING 110 MG/DL (74-106); POTASSIUM SERUM 4.3 MMOL/L (3.5-5.1); SODIUM LEVEL 131 MMOL/L (136-145); TOTAL PROTEIN 6.5 G/DL (5.7-8.2)
[2023-07-07] MEDS ORDERED: ALBUTEROL SULFATE 2.5MG/0.5ML INH NEB SOLN NEB PRN (19:45)
[2023-07-07] MEDS ORDERED: IPRATROPIUM 0.5MG/ALBUTEROL 2.5MG INH SOL UD 3ML (DUONEB) NEB PRN (19:45)
[2023-07-07] MEDS ORDERED: HOME MED LIST COMPLETE! XX SCH (19:50)
[2023-07-07] MEDS: SODIUM CHLORIDE 0.9% 1000ML IV SCH (19:58)
[2023-07-07] MEDS ORDERED: GLUCAGON INJ 1MG VIAL SC PRN (20:00)
[2023-07-07] MEDS ORDERED: GLUCOSE 4GM CHEW TABLET PO PRN (20:00)
[2023-07-07] MEDS ORDERED: DEXTROSE 50% 50ML SYRINGE IV PRN (20:00)
[2023-07-07 20:10] VITALS: BP 142/64; TEMP 96.9; O2SAT 95
[2023-07-07] MEDS: INSULIN LISPRO (NovoLOG) PER UNIT SC SCH (20:54)
[2023-07-07] MEDS: HEPARIN SOD (PORCINE) 5000UNITS/ML 1ML VIAL/SYRINGE SC SCH (20:54)
[2023-07-07] MEDS: ACETAMINOPHEN TAB 650MG DOSE (2X325MG) PO PRN (20:55)
[2023-07-07 21:00] VITALS: O2SAT 93
[2023-07-07 21:25] LABS: IONIZED CALCIUM 4.3 MG/DL (4.5-5.3)
[2023-07-07 21:45] LABS: INR 1.04; PARTIAL THROMBOPLASTIN TIME 34.4 SECONDS (24.8-34.2); PROTHROMBIN TIME 13.3 SECONDS (12.5-14.5)
[2023-07-07 21:50] LABS: MAGNESIUM LEVEL 1.4 MG/DL (1.8-2.4)
[2023-07-07 22:00] VITALS: O2SAT 88
[2023-07-07] MEDS: NS 1,000 ML IV SCH (22:14)
[2023-07-07 23:00] VITALS: O2SAT 95
[2023-07-07] MEDS: MAGNESIUM OXIDE 400MG TAB (MAG-OX) PO SCH (23:15)
[2023-07-08] VITALS (14 sets, daily range): BP systolic 117–156; BP diastolic 58–67; TEMP 96.8–98.8; O2SAT 93–98
[2023-07-08] MEDS: NS 1,000 ML IV ONE (04:20)
[2023-07-08 05:37] LABS: BASO % 0.2 % (0.0-1.0); EOS % 4.4 % (0.0-3.0); HEMATOCRIT 33.5 % (36.0-47.0); HEMOGLOBIN 10.9 g/dl (12.0-15.5); LYMPH % 12.1 % (24.0-44.0); MEAN CORPUSCULAR HEMOGLOBIN 31.6 pg (27.0-33.0); MEAN CORPUSCULAR HGB CONC 32.5 g/dl (32.0-36.5); MEAN CORPUSCULAR VOLUME 97.1 fl (80.0-96.0); MONO % 7.2 % (2.0-8.0); NEUTROPHILS % 75.4 % (36.0-66.0); PLATELET COUNT, AUTOMATED 293 10^3/uL (150-450); RED BLOOD COUNT 3.45 10^6/uL (4.00-5.40)
[2023-07-08 05:38] LABS: EOS # 0.5 10^3/uL (0.0-0.5); LYMPH # 1.5 10^3/uL (1.5-5.0); MONO # 0.9 10^3/uL (0.0-0.8); NEUTROPHILS # 9.1 10^3/uL (1.5-8.5)
[2023-07-08 05:55] LABS: ALBUMIN 2.7 G/DL (3.2-5.2); CALCIUM LEVEL 7.9 MG/DL (8.3-10.6); CREATININE FOR GFR 5.27 MG/DL (0.55-1.30); GLOMERULAR FILTRATION RATE 8.5 (>39); PHOSPHORUS LEVEL 6.8 MG/DL (2.4-5.1); POTASSIUM SERUM 4.4 MMOL/L (3.5-5.1)
[2023-07-08 06:06] LABS: ALBUMIN 2.5 G/DL (3.2-5.2); BILIRUBIN,TOTAL 0.2 MG/DL (0.3-1.2); CALCIUM LEVEL 8.2 MG/DL (8.3-10.6); CREATININE FOR GFR 5.38 MG/DL (0.55-1.30); GLOMERULAR FILTRATION RATE 8.3 (>39); MAGNESIUM LEVEL 1.6 MG/DL (1.8-2.4); POTASSIUM SERUM 4.3 MMOL/L (3.5-5.1); TOTAL PROTEIN 5.8 G/DL (5.7-8.2)
[2023-07-08] MEDS: INSULIN LISPRO (NovoLOG) PER UNIT SC SCH (08:26)
[2023-07-08] MEDS: (RENVELA) SEVELAMER **CARBONate** 800 MG TAB PO SCH (12:22)
[2023-07-09] VITALS (19 sets, daily range): BP systolic 128–139; BP diastolic 58–65; TEMP 97.7–100; O2SAT 82–99
[2023-07-09 05:38] LABS: HEMATOCRIT 30.2 % (36.0-47.0); HEMOGLOBIN 9.8 g/dl (12.0-15.5); LYMPH % 10.7 % (24.0-44.0); MEAN CORPUSCULAR HEMOGLOBIN 31.4 pg (27.0-33.0); MEAN CORPUSCULAR HGB CONC 32.5 g/dl (32.0-36.5); MEAN CORPUSCULAR VOLUME 96.8 fl (80.0-96.0); MONO % 10.3 % (2.0-8.0); NEUTROPHILS % 75.1 % (36.0-66.0); PLATELET COUNT, AUTOMATED 266 10^3/uL (150-450); RED BLOOD COUNT 3.12 10^6/uL (4.00-5.40); WHITE BLOOD COUNT 10.5 10^3/uL (4.0-10.0)
[2023-07-09 05:39] LABS: BASO % 0.2 % (0.0-1.0); EOS # 0.3 10^3/uL (0.0-0.5); EOS % 3.1 % (0.0-3.0); LYMPH # 1.1 10^3/uL (1.5-5.0); MONO # 1.1 10^3/uL (0.0-0.8); NEUTROPHILS # 7.9 10^3/uL (1.5-8.5)
[2023-07-09 06:01] LABS: ALBUMIN 2.4 G/DL (3.2-5.2); CALCIUM LEVEL 8.5 MG/DL (8.3-10.6); CREATININE FOR GFR 6.88 MG/DL (0.55-1.30); GLOMERULAR FILTRATION RATE 6.2 (>39); PHOSPHORUS LEVEL 7.6 MG/DL (2.4-5.1); POTASSIUM SERUM 4.6 MMOL/L (3.5-5.1)
[2023-07-09] MEDS: LEVOTHYROXINE 75MCG TABLET (0.075MG) PO SCH (06:29)
[2023-07-09] MEDS: LEVOTHYROXINE 100MCG TABLET (0.1MG) PO SCH (06:29)
[2023-07-09] MEDS: ONDANSETRON 4MG 2ML VIAL IV PRN (08:02)
[2023-07-09] MEDS: FLUTICASONE PROP 0.05% NASAL SPRAY 16 GM (FLONASE) SCH (08:07)
[2023-07-09] MEDS: SYMBICORT 160/4.5MCG INHALER 6GM INH SCH (09:00)
[2023-07-09] MEDS: PRAVASTATIN 20 MG TAB PO SCH (09:00)
[2023-07-09] MEDS ORDERED: levETIRAcetam 250MG TABLET (KEPPRA) PO SCH (09:00)
[2023-07-09] MEDS ORDERED: SODIUM CHLORIDE 0.9% 1000ML IV PRN (09:25)
[2023-07-09] MEDS ORDERED: HEPARIN 1,000UNITS/ML 10ML VIAL (FOR RADIOLOGY & DIALYSIS ONLY) XX SCH (09:25)
[2023-07-09] MEDS ORDERED: HEPARIN 1,000UNITS/ML 10ML VIAL (FOR RADIOLOGY & DIALYSIS ONLY) IV PRN (09:25)
[2023-07-09 10:04] LABS: LDH LACTATE DEHYDROGENASE 155 U/L (120-246)
[2023-07-09 10:05] LABS: ANTI-STREPTOLYSIN O QUANT 102.1 IU/ML (<195); COMPLEMENT C3 141.2 MG/DL (90.0-170.0)
[2023-07-09 10:09] LABS: COMPLEMENT C4 30.9 MG/DL (12-36)
[2023-07-09 10:13] LABS: HEPATITIS B SURFACE ANTIBODY NEGATIVE (POSITIVE)
[2023-07-09 10:45] LABS: HEPATITIS B CORE ANTIBODY IGM NEGATIVE (NEGATIVE); HEPATITIS C VIRUS ABY INDEX < 0.02 INDEX (<0.8)
[2023-07-09] MEDS: GABAPENTIN 100 MG CAP PO SCH (20:11)
[2023-07-09] MEDS: levETIRAcetam 250MG TABLET (KEPPRA) PO SCH (20:11)
[2023-07-10] VITALS (21 sets, daily range): BP systolic 110–140; BP diastolic 54–60; TEMP 97.5–98.9; O2SAT 90–97
[2023-07-10 04:53] LABS: BASO % 0.3 % (0.0-1.0); EOS # 0.4 10^3/uL (0.0-0.5); EOS % 3.4 % (0.0-3.0); HEMATOCRIT 28.7 % (36.0-47.0); HEMOGLOBIN 9.4 g/dl (12.0-15.5); LYMPH # 1.4 10^3/uL (1.5-5.0); LYMPH % 11.4 % (24.0-44.0); MEAN CORPUSCULAR HEMOGLOBIN 31.8 pg (27.0-33.0); MEAN CORPUSCULAR HGB CONC 32.8 g/dl (32.0-36.5); MONO # 1.3 10^3/uL (0.0-0.8); MONO % 10.7 % (2.0-8.0); NEUTROPHILS # 8.8 10^3/uL (1.5-8.5); NEUTROPHILS % 73.8 % (36.0-66.0); PLATELET COUNT, AUTOMATED 231 10^3/uL (150-450); RED BLOOD COUNT 2.96 10^6/uL (4.00-5.40)
[2023-07-10 05:12] LABS: ALBUMIN 2.4 G/DL (3.2-5.2); CALCIUM LEVEL 7.8 MG/DL (8.3-10.6); CREATININE FOR GFR 4.27 MG/DL (0.55-1.30); GLOMERULAR FILTRATION RATE 10.8 (>39); MAGNESIUM LEVEL 1.9 MG/DL (1.8-2.4); PHOSPHORUS LEVEL 4.6 MG/DL (2.4-5.1); POTASSIUM SERUM 4.1 MMOL/L (3.5-5.1)
[2023-07-10] MEDS ORDERED: SODIUM CHLORIDE 0.9% 1000ML IV PRN (06:00)
[2023-07-10] MEDS ORDERED: HEPARIN 1,000UNITS/ML 10ML VIAL (FOR RADIOLOGY & DIALYSIS ONLY) IV PRN (06:00)
[2023-07-10] MEDS ORDERED: HEPARIN 1,000UNITS/ML 10ML VIAL (FOR RADIOLOGY & DIALYSIS ONLY) XX SCH (06:00)
[2023-07-10 07:55] LABS: PROCALCITONIN 0.2 ng/ml
[2023-07-10] MEDS ORDERED: cefTRIAXone SOD 1 GM in D5W MINI-BAG PLUS 50 ML IV SCH (08:00)
[2023-07-10] MEDS ORDERED: DOXYCYCLINE HYCLATE 100MG TABLET PO SCH (09:00)
[2023-07-10] MEDS: cefTRIAXone SOD 1 GM in D5W MINI-BAG PLUS 50 ML IV SCH (18:23)
[2023-07-10] MEDS: GABAPENTIN 300 MG CAP PO ONE (18:49)
[2023-07-10] MEDS: ASPIRIN 81MG ENTERIC TABLET PO SCH (20:31)
[2023-07-11] VITALS (22 sets, daily range): BP systolic 116–136; BP diastolic 60–82; TEMP 97–98; O2SAT 86–98
[2023-07-11] MEDS ORDERED: HEPARIN 1,000UNITS/ML 10ML VIAL (FOR RADIOLOGY & DIALYSIS ONLY) IV PRN (06:00)
[2023-07-11] MEDS ORDERED: SODIUM CHLORIDE 0.9% 1000ML IV PRN (06:00)
[2023-07-11] MEDS ORDERED: HEPARIN 1,000UNITS/ML 10ML VIAL (FOR RADIOLOGY & DIALYSIS ONLY) XX SCH (06:00)
[2023-07-11 06:22] LABS: BASO % 0.2 % (0.0-1.0); EOS # 0.4 10^3/uL (0.0-0.5); EOS % 3.2 % (0.0-3.0); HEMATOCRIT 29.6 % (36.0-47.0); HEMOGLOBIN 9.7 g/dl (12.0-15.5); LYMPH # 1.2 10^3/uL (1.5-5.0); LYMPH % 9.6 % (24.0-44.0); MEAN CORPUSCULAR HEMOGLOBIN 31.3 pg (27.0-33.0); MEAN CORPUSCULAR HGB CONC 32.8 g/dl (32.0-36.5); MEAN CORPUSCULAR VOLUME 95.5 fl (80.0-96.0); MONO # 1.3 10^3/uL (0.0-0.8); NEUTROPHILS # 9.6 10^3/uL (1.5-8.5); NEUTROPHILS % 76.4 % (36.0-66.0); PLATELET COUNT, AUTOMATED 256 10^3/uL (150-450); WHITE BLOOD COUNT 12.6 10^3/uL (4.0-10.0)
[2023-07-11 07:10] LABS: ALBUMIN 2.5 G/DL (3.2-5.2); BILIRUBIN,TOTAL 0.2 MG/DL (0.3-1.2); CALCIUM LEVEL 8.6 MG/DL (8.3-10.6); CREATININE FOR GFR 3.54 MG/DL (0.55-1.30); GLOMERULAR FILTRATION RATE 13.4 (>39); POTASSIUM SERUM 4.1 MMOL/L (3.5-5.1); TOTAL PROTEIN 5.9 G/DL (5.7-8.2)
[2023-07-11] MEDS: methylPREDNISolone 125MG 2ML VIAL IV SCH (18:04)
[2023-07-11 18:07] LABS: COMPLEMENT TOTAL (CH50) > 60 U/mL (>41); HEPATITIS B CORE ANTIBODY IGG Negative (Negative)
[2023-07-11] MEDS: IPRATROPIUM 0.5MG/ALBUTEROL 2.5MG INH SOL UD 3ML (DUONEB) NEB SCH (19:53)
[2023-07-11] MEDS: GABAPENTIN 300 MG CAP PO SCH (20:31)
[2023-07-12] VITALS (23 sets, daily range): BP systolic 118–136; BP diastolic 58–64; TEMP 96.9–97.4; O2SAT 89–100
[2023-07-12 06:10] LABS: BASO % 0.1 % (0.0-1.0); HEMATOCRIT 30.5 % (36.0-47.0); LYMPH # 0.5 10^3/uL (1.5-5.0); LYMPH % 4.4 % (24.0-44.0); MEAN CORPUSCULAR HEMOGLOBIN 31.5 pg (27.0-33.0); MEAN CORPUSCULAR HGB CONC 32.8 g/dl (32.0-36.5); MEAN CORPUSCULAR VOLUME 96.2 fl (80.0-96.0); MONO # 0.1 10^3/uL (0.0-0.8); MONO % 1.1 % (2.0-8.0); NEUTROPHILS % 93.7 % (36.0-66.0); PLATELET COUNT, AUTOMATED 250 10^3/uL (150-450); RED BLOOD COUNT 3.17 10^6/uL (4.00-5.40); WHITE BLOOD COUNT 11.7 10^3/uL (4.0-10.0)
[2023-07-12 06:36] LABS: ALBUMIN 2.6 G/DL (3.2-5.2); ALKALINE PHOSPHATASE 69 U/L (46-116); ALT/SGPT 14 U/L (7.0-40); AST/SGOT 10 U/L (<34); BILIRUBIN,TOTAL < 0.2 MG/DL (0.3-1.2); BLOOD UREA NITROGEN 30 MG/DL (9-23); CALCIUM LEVEL 8.8 MG/DL (8.3-10.6); CARBON DIOXIDE LEVEL 29 MMOL/L (20-31); CHLORIDE LEVEL 102 MMOL/L (98-107); CREATININE FOR GFR 2.77 MG/DL (0.55-1.30); GLOMERULAR FILTRATION RATE 17.8 (>39); GLUCOSE, FASTING 188 MG/DL (74-106); MAGNESIUM LEVEL 1.8 MG/DL (1.8-2.4); PHOSPHORUS LEVEL 3.8 MG/DL (2.4-5.1); POTASSIUM SERUM 4.7 MMOL/L (3.5-5.1); SODIUM LEVEL 138 MMOL/L (136-145); TOTAL PROTEIN 6.2 G/DL (5.7-8.2)
[2023-07-12] MEDS: predniSONE 20 MG TAB PO SCH (09:27)
[2023-07-12] MEDS: AMOXICILLIN 500 MG CAP PO SCH (13:31)
[2023-07-13] VITALS (8 sets, daily range): BP systolic 120–148; BP diastolic 56–67; TEMP 96.8–98.1; O2SAT 93–100
[2023-07-13] MEDS: LACTOBACILLUS ACIDOPHILUS CAP (BACID) PO SCH (08:13)
[2023-07-13 08:42] LABS: BASO % 0.2 % (0.0-1.0); HEMOGLOBIN 10.2 g/dl (12.0-15.5); LYMPH # 1.7 10^3/uL (1.5-5.0); LYMPH % 9.5 % (24.0-44.0); MEAN CORPUSCULAR HEMOGLOBIN 31.4 pg (27.0-33.0); MEAN CORPUSCULAR HGB CONC 32.9 g/dl (32.0-36.5); MEAN CORPUSCULAR VOLUME 95.4 fl (80.0-96.0); MONO # 1.1 10^3/uL (0.0-0.8); NEUTROPHILS # 15.1 10^3/uL (1.5-8.5); PLATELET COUNT, AUTOMATED 317 10^3/uL (150-450); RED BLOOD COUNT 3.25 10^6/uL (4.00-5.40); WHITE BLOOD COUNT 18.2 10^3/uL (4.0-10.0)
[2023-07-13 09:06] LABS: ALBUMIN 2.9 G/DL (3.2-5.2); ALKALINE PHOSPHATASE 68 U/L (46-116); ALT/SGPT 18 U/L (7.0-40); AST/SGOT 22 U/L (<34); BILIRUBIN,TOTAL < 0.2 MG/DL (0.3-1.2); BLOOD UREA NITROGEN 58 MG/DL (9-23); CALCIUM LEVEL 9.5 MG/DL (8.3-10.6); CARBON DIOXIDE LEVEL 26 MMOL/L (20-31); CHLORIDE LEVEL 98 MMOL/L (98-107); CREATININE FOR GFR 3.49 MG/DL (0.55-1.30); GLOMERULAR FILTRATION RATE 13.6 (>39); GLUCOSE, FASTING 125 MG/DL (74-106); MAGNESIUM LEVEL 1.9 MG/DL (1.8-2.4); PHOSPHORUS LEVEL 3.5 MG/DL (2.4-5.1); POTASSIUM SERUM 4.9 MMOL/L (3.5-5.1); SODIUM LEVEL 135 MMOL/L (136-145); TOTAL PROTEIN 6.5 G/DL (5.7-8.2)
[2023-07-13] MEDS: GABAPENTIN 300 MG CAP PO SCH (20:30)
[2023-07-13] MEDS: SODIUM CHLORIDE NASAL 0.65% SPRAY BTL (OCEAN) PRN (20:36)
[2023-07-14] VITALS (11 sets, daily range): BP systolic 104–156; BP diastolic 60–72; TEMP 97–97.7; O2SAT 93–98
[2023-07-14 07:55] LABS: BASO % 0.2 % (0.0-1.0); EOS % 0.1 % (0.0-3.0); HEMATOCRIT 29.5 % (36.0-47.0); HEMOGLOBIN 9.7 g/dl (12.0-15.5); LYMPH # 2.1 10^3/uL (1.5-5.0); LYMPH % 14.6 % (24.0-44.0); MEAN CORPUSCULAR HEMOGLOBIN 31.7 pg (27.0-33.0); MEAN CORPUSCULAR HGB CONC 32.9 g/dl (32.0-36.5); MEAN CORPUSCULAR VOLUME 96.4 fl (80.0-96.0); MONO # 1.1 10^3/uL (0.0-0.8); MONO % 7.6 % (2.0-8.0); NEUTROPHILS # 10.9 10^3/uL (1.5-8.5); NEUTROPHILS % 74.5 % (36.0-66.0); PLATELET COUNT, AUTOMATED 317 10^3/uL (150-450); RED BLOOD COUNT 3.06 10^6/uL (4.00-5.40); WHITE BLOOD COUNT 14.7 10^3/uL (4.0-10.0)
[2023-07-14 08:27] LABS: ALBUMIN 2.7 G/DL (3.2-5.2); BILIRUBIN,TOTAL 0.2 MG/DL (0.3-1.2); CALCIUM LEVEL 9.3 MG/DL (8.3-10.6); CREATININE FOR GFR 3.47 MG/DL (0.55-1.30); GLOMERULAR FILTRATION RATE 13.7 (>39); POTASSIUM SERUM 4.7 MMOL/L (3.5-5.1); TOTAL PROTEIN 6.1 G/DL (5.7-8.2)
[2023-07-15 02:00] VITALS: TEMP 97.4; O2SAT 97
[2023-07-15 06:00] VITALS: BP 147/67; TEMP 97.7; O2SAT 95
[2023-07-15 06:35] LABS: BASO # 0.1 10^3/uL (0.0-0.2); BASO % 0.6 % (0.0-1.0); EOS # 0.4 10^3/uL (0.0-0.5); EOS % 2.8 % (0.0-3.0); HEMATOCRIT 31.3 % (36.0-47.0); HEMOGLOBIN 10.1 g/dl (12.0-15.5); LYMPH # 2.4 10^3/uL (1.5-5.0); MEAN CORPUSCULAR HEMOGLOBIN 31.9 pg (27.0-33.0); MEAN CORPUSCULAR HGB CONC 32.3 g/dl (32.0-36.5); MEAN CORPUSCULAR VOLUME 98.7 fl (80.0-96.0); MONO # 1.4 10^3/uL (0.0-0.8); MONO % 10.8 % (2.0-8.0); NEUTROPHILS # 7.9 10^3/uL (1.5-8.5); NEUTROPHILS % 62.9 % (36.0-66.0); PLATELET COUNT, AUTOMATED 310 10^3/uL (150-450); RED BLOOD COUNT 3.17 10^6/uL (4.00-5.40); WHITE BLOOD COUNT 12.5 10^3/uL (4.0-10.0)
[2023-07-15 06:51] LABS: ALBUMIN 2.7 G/DL (3.2-5.2); BILIRUBIN,TOTAL 0.2 MG/DL (0.3-1.2); CALCIUM LEVEL 9.5 MG/DL (8.3-10.6); CREATININE FOR GFR 2.91 MG/DL (0.55-1.30); GLOMERULAR FILTRATION RATE 16.8 (>39); POTASSIUM SERUM 4.5 MMOL/L (3.5-5.1); TOTAL PROTEIN 5.9 G/DL (5.7-8.2)
[2023-07-15 08:45] VITALS: O2SAT 93
[2023-07-15 10:08] VITALS: BP 160/65; TEMP 97.6; O2SAT 95
[2023-07-15 10:13] VITALS: O2SAT 95
[2023-07-15] MEDS ORDERED: GABA-282 PO (12:02)
[2023-07-16] MEDS ORDERED: PRED20TA PO (13:37)
[2023-07-16] MEDS ORDERED: ALBU2.5V10 INH (13:37)
[2023-07-16] MEDS ORDERED: IPRA0.00 INH (13:37)
[2023-07-16] MEDS ORDERED: ALBU8.5H INH (13:37)
== END 2023-07-15 14:34 | disposition home or self-care (01) | DRG 682 ==
LOC: M ED 16:03 → M ED INP 19:23 → M PCU 20:08 → M MS4PR 07-12 20:54
PROVIDERS: ADMIT Internal Medicine; ATTEND Internal Medicine
PROC: 0DBN8ZX Excision of Sigmoid Colon, Via Natural or Artificial Opening Endoscopic, Diagnostic (ICD-10-PCS; principal; 2023-07-05)
PROC: 0DBP8ZX Excision of Rectum, Via Natural or Artificial Opening Endoscopic, Diagnostic (ICD-10-PCS; 2023-07-05)
PROC: 0DBM8ZX Excision of Descending Colon, Via Natural or Artificial Opening Endoscopic, Diagnostic (ICD-10-PCS; 2023-07-05)
PROC: 0DBL8ZX Excision of Transverse Colon, Via Natural or Artificial Opening Endoscopic, Diagnostic (ICD-10-PCS; 2023-07-05)
PROC: 0DBK8ZX Excision of Ascending Colon, Via Natural or Artificial Opening Endoscopic, Diagnostic (ICD-10-PCS; 2023-07-05)
PROC: 02HV33Z Insertion of Infusion Device into Superior Vena Cava, Percutaneous Approach (ICD-10-PCS; 2023-07-09)
PROC: 5A1D70Z Performance of Urinary Filtration, Intermittent, Less than 6 Hours Per Day (ICD-10-PCS; 2023-07-09)
DX: N17.0 Acute kidney failure with tubular necrosis (principal); A41.9 Sepsis, unspecified organism; E87.1 Hypo-osmolality and hyponatremia; E87.20 Acidosis, unspecified; J98.11 Atelectasis; J44.1 Chronic obstructive pulmonary disease with (acute) exacerbation; N39.0 Urinary tract infection, site not specified; D12.6 Benign neoplasm of colon, unspecified; K64.2 Third degree hemorrhoids; K57.30 Diverticulosis of large intestine without perforation or abscess without bleeding; Z87.891 Personal history of nicotine dependence; I10 Essential (primary) hypertension; E03.9 Hypothyroidism, unspecified; Z79.52 Long term (current) use of systemic steroids; Z79.890 Hormone replacement therapy; Z79.899 Other long term (current) drug therapy; E11.42 Type 2 diabetes mellitus with diabetic polyneuropathy; E83.42 Hypomagnesemia; E78.5 Hyperlipidemia, unspecified; E83.39 Other disorders of phosphorus metabolism; M81.0 Age-related osteoporosis without current pathological fracture; R91.8 Other nonspecific abnormal finding of lung field; Z86.73 Personal history of transient ischemic attack (TIA), and cerebral infarction without residual deficits

== ENCOUNTER → 2023-12-18 | Outpatient (CLI) | payer MEDICARE ==
[~2023-12-18] MED LIST changes: +ALBU2.5V10 INH; +ALBU8.5H INH; +GABA-282 PO; +IPRA0.00 INH; +PRED20TA PO
== END ==
LOC: M SLEEP 20:00
PROVIDERS: ATTEND Internal Medicine Critical Care Medicine
DX: G47.33 Obstructive sleep apnea (adult) (pediatric) (principal)

== ENCOUNTER → 2023-12-20 | Outpatient (CLI) | payer MEDICARE | LOC: M PLAIMG 11:03 | PROVIDERS: ATTEND Internal Medicine Critical Care Medicine | DX: J44.9 Chronic obstructive pulmonary disease, unspecified (principal) ==

== ENCOUNTER → 2024-02-09 | Outpatient (CLI) | payer MEDICARE ==
[~2024-02-09] MED LIST changes: +GABA-1172 PO; -GABA-282 PO; +IBAN150T10 PO; -IBAN150T6 PO
== END ==
LOC: M SLEEP 20:00
PROVIDERS: ATTEND Internal Medicine Critical Care Medicine
DX: G47.33 Obstructive sleep apnea (adult) (pediatric) (principal)

== ENCOUNTER → 2024-07-16 | Outpatient (CLI) | payer MEDICARE | LOC: M WHC 12:53 | PROVIDERS: ATTEND Nurse Practitioner Family | DX: Z12.31 Encounter for screening mammogram for malignant neoplasm of breast (principal) ==

== ENCOUNTER → 2024-08-12 | Outpatient (CLI) | payer MEDICARE | LOC: M WUC 13:49 | PROVIDERS: ATTEND Physician Assistant | DX: M79.641 Pain in right hand (principal); M25.531 Pain in right wrist ==

== ENCOUNTER → 2024-08-20 | Outpatient (CLI) | payer MEDICARE | LOC: M PLAIMG 11:16 | PROVIDERS: ATTEND Internal Medicine Critical Care Medicine | DX: R91.8 Other nonspecific abnormal finding of lung field (principal) ==

== ENCOUNTER → 2024-12-11 | Outpatient (CLI) | payer MEDICARE ==
[~2024-12-11] MED LIST changes: -PRAV40TA2 PO; +PRAV40TA85 PO
== END ==
LOC: M PLAIMG 12:30
PROVIDERS: ATTEND Internal Medicine Critical Care Medicine
DX: R91.8 Other nonspecific abnormal finding of lung field (principal); J47.9 Bronchiectasis, uncomplicated; I25.10 Atherosclerotic heart disease of native coronary artery without angina pectoris